=== PATIENT | female | born 1990 | race Two or more races ===

== ENCOUNTER 2025-03-09 19:43 | Emergency (ER) | payer OTHER ==
[~2025-03-09] VITALS: Ht 160 cm; Wt 54.4 kg
[2025-03-10] MEDS ORDERED: KETOROLAC TROMETHAMINE 10 MG TABLET PO ONE (03:58)
[2025-03-10] MEDS ORDERED: KETOROLAC TROMETHAMINE 10 MG TABLET PO STA (03:58)
[2025-03-10] MEDS ORDERED: TETRACAINE HCL 20 DR/ML DROPS OP STA (03:59)
== END 2025-03-10 04:11 | disposition home or self-care (01) ==
LOC: ER 19:43
DX: J06.9 Acute upper respiratory infection, unspecified (principal); Z88.8 Allergy status to other drugs, medicaments and biological substances; H92.01 Otalgia, right ear